=== PATIENT | male | born 1945 | race African-American/Black ===

== ENCOUNTER 2021-05-09 11:11 | Inpatient (IN) | payer MEDICARE, MEDICAID ==
[~2021-05-09] VITALS: Ht 182.9 cm; Wt 84.8 kg
[2021-05-09 12:31] LABS: EOSINOPHILS % 1.6 % (0.0-5.0); HEMATOCRIT. 39.9 % (42.0-52.0); HEMOGLOBIN. 13.3 g/dL (14.0-18.0); LYMPHOCYTES % 16.7 % (20.0-50.0); MEAN CORPUSCULAR HEMOGLOBIN 28.3 pg (28.0-32.0); MEAN CORPUSCULAR VOLUME 85.1 fL (80.0-94.0); NEUTROPHILS % 70.7 % (40.0-76.0); RED BLOOD CELL COUNT 4.69 mill/uL (4.7-6.1)
[2021-05-09 12:33] LABS: CHLORIDE 111 mEq/L (98-107)
[2021-05-09 12:49] LABS: MEAN PLATELET VOLUME 8.5 fl (7.4-10.4); PLATELET 183 x1000/uL (130-400)
[2021-05-09] MEDS ORDERED: IOHEXOL-350 100 ML BOTTLE ONE (13:21)
[2021-05-09] MEDS ORDERED: IPRATROPIUM/ALBUTEROL 0.5-3(2.5)MG/3ML NEB HHN PRN (14:30)
[2021-05-09] MEDS ORDERED: DIPHENHYDRAMINE 50MG/ML VIAL IV PRN (14:30)
[2021-05-09] MEDS ORDERED: ONDANSETRON HCL 4MG/2ML INJ IV PRN (14:30)
[2021-05-09] MEDS ORDERED: ACETAMINOPHEN 325MG TABLET PO PRN (14:30)
[2021-05-09] MEDS: ASPIRIN 81MG TABLET PO SCH (21:56)
[2021-05-09] MEDS: CLONIDINE 0.1MG TABLET PO PRN (22:51)
[2021-05-09 23:30] VITALS: BP 158/56
[2021-05-10] MEDS ORDERED: ATOR40TA70 PO (00:40)
[2021-05-10] MEDS ORDERED: SULF1TAB47 MT (00:40)
[2021-05-10] MEDS ORDERED: CARV25TA47 MT (00:40)
[2021-05-10] MEDS ORDERED: LISI-186 PO (00:40)
[2021-05-10] MEDS ORDERED: FERR236T3 MT (00:40)
[2021-05-10] MEDS ORDERED: ASPI-867 MT (00:40)
[2021-05-10 04:00] VITALS: BP 153/57
[2021-05-10] MEDS: CLONIDINE 0.1MG TABLET PO PRN ×2 (05:35→20:22)
[2021-05-10] MEDS ORDERED: ASPI-1497 PO (07:17)
[2021-05-10 07:18] LABS: BASOPHILS % 0.7 % (0.0-2.0); EOSINOPHILS % 1.5 % (0.0-5.0); HEMATOCRIT. 37.6 % (42.0-52.0); HEMOGLOBIN. 12.8 g/dL (14.0-18.0); LYMPHOCYTES % 19.5 % (20.0-50.0); MEAN CORPUSCULAR HEMOGLOBIN 28.7 pg (28.0-32.0); MEAN CORPUSCULAR VOLUME 84.4 fL (80.0-94.0); MEAN PLATELET VOLUME 8.1 fl (7.4-10.4); MONOCYTES % 10.2 % (2.0-8.0); NEUTROPHILS % 68.1 % (40.0-76.0); PLATELET 149 x1000/uL (130-400); RED BLOOD CELL COUNT 4.45 mill/uL (4.7-6.1)
[2021-05-10 08:00] VITALS: BP 160/89
[2021-05-10 08:04] LABS: CHLORIDE 111 mEq/L (98-107)
[2021-05-10 08:12] LABS: CLARITY URINE CLEAR (CLEAR); COLOR URINE YELLOW (YELLOW); KETONES URINE NEGATIVE (NEGATIVE); LEUKOCYTE ESTERASE URINE NEGATIVE (NEGATIVE); NITRITE URINE NEGATIVE (NEGATIVE); OCCULT BLOOD URINE NEGATIVE (NEGATIVE); PROTEIN URINE NEGATIVE (NEGATIVE); SPECIFIC GRAVITY URINE 1.048 (1.005-1.030)
[2021-05-10 08:15] LABS: LDL CHOLESTEROL 118 mg/dL (5-100)
[2021-05-10 08:18] LABS: HDL CHOLESTEROL 59 mg/dL (40-59)
[2021-05-10] MEDS: ASPIRIN 81MG TABLET PO SCH (08:28)
[2021-05-10 08:33] LABS: *AMPHETAMINES SCREEN URINE NEGATIVE (NEGATIVE); *BARBITURATES SCREEN URINE NEGATIVE (NEGATIVE); *COCAINE SCREEN URINE NEGATIVE (NEGATIVE); CANNABINOID URINE SCREEN NEGATIVE (NEGATIVE); OPIATES URINE SCREEN NEGATIVE (NEGATIVE)
[2021-05-10 08:34] LABS: *BENZODIAZEPINES SCREEN URINE NEGATIVE (NEGATIVE); METHADONE URINE SCREEN NEGATIVE (NEGATIVE)
[2021-05-10 08:36] LABS: PHENCYCLIDINE URINE SCREEN NEGATIVE (NEGATIVE)
[2021-05-10 11:50] VITALS: BP 137/80
[2021-05-10] MEDS ORDERED: INFLUENZA VACCINE 05/PF 0.5 ML SYRINGE IM ONE (12:00)
[2021-05-10] MEDS ORDERED: PNEUMOCOCCAL 23-VAL P-SAC VAC 0.5 ML IM ONE (12:00)
[2021-05-10 16:00] VITALS: BP 160/94
[2021-05-10 20:00] VITALS: BP 193/105
[2021-05-10] MEDS: ATORVASTATIN CALCIUM 40MG TABLET PO SCH (21:24)
[2021-05-10] MEDS: HYDRALAZINE 20MG/ML VIAL IV PRN (21:37)
[2021-05-11] VITALS: BP 178/89
[2021-05-11] MEDS: HYDRALAZINE 20MG/ML VIAL IV PRN (01:55)
[2021-05-11 04:00] VITALS: BP 122/89
[2021-05-11 06:38] LABS: BASOPHILS % 0.9 % (0.0-2.0); EOSINOPHILS % 2.3 % (0.0-5.0); HEMATOCRIT. 39.3 % (42.0-52.0); HEMOGLOBIN. 13.5 g/dL (14.0-18.0); LYMPHOCYTES % 21.3 % (20.0-50.0); MEAN CORPUSCULAR HEMOGLOBIN 28.8 pg (28.0-32.0); MEAN CORPUSCULAR VOLUME 83.5 fL (80.0-94.0); MEAN PLATELET VOLUME 8.9 fl (7.4-10.4); MONOCYTES % 10.1 % (2.0-8.0); NEUTROPHILS % 65.4 % (40.0-76.0); PLATELET 164 x1000/uL (130-400); RED BLOOD CELL COUNT 4.71 mill/uL (4.7-6.1); RED CELL DISTRIBUTION WIDTH 13.8 % (11.6-14.6)
[2021-05-11 07:10] LABS: CHLORIDE 108 mEq/L (98-107)
[2021-05-11 08:00] VITALS: BP 153/80
[2021-05-11] MEDS ORDERED: GADOTERATE MEGLUMINE 5 MMOL/10 ML VIAL IV ONE (09:48)
[2021-05-11] MEDS: ASPIRIN 81MG TABLET PO SCH (10:22)
[2021-05-11] MEDS: CLOPIDOGREL 75MG TABLET PO SCH (11:23)
[2021-05-11 12:00] VITALS: BP 175/104
[2021-05-11] MEDS: CLONIDINE 0.1MG TABLET PO PRN (13:57)
[2021-05-11 16:00] VITALS: BP 133/79
[2021-05-11] MEDS: AMLODIPINE 5MG TABLET PO SCH (17:31)
[2021-05-11 20:00] VITALS: BP 115/71
[2021-05-11] MEDS: ATORVASTATIN CALCIUM 40MG TABLET PO SCH (21:44)
[2021-05-12] VITALS (7 sets, daily range): BP systolic 116–170; BP diastolic 71–87
[2021-05-12] MEDS: HYDRALAZINE 20MG/ML VIAL IV PRN ×2 (01:14→12:03)
[2021-05-12] MEDS: CLOPIDOGREL 75MG TABLET PO SCH (09:12)
[2021-05-12] MEDS: ASPIRIN 81MG TABLET PO SCH (09:12)
[2021-05-12] MEDS: AMLODIPINE 5MG TABLET PO SCH ×2 (09:12→17:38)
[2021-05-12] MEDS: ATORVASTATIN CALCIUM 40MG TABLET PO SCH (20:31)
[2021-05-13] VITALS: BP 129/80
[2021-05-13 04:00] VITALS: BP 148/88
[2021-05-13 08:03] VITALS: BP 156/97
[2021-05-13] MEDS: CLOPIDOGREL 75MG TABLET PO SCH (08:49)
[2021-05-13] MEDS: ASPIRIN 81MG TABLET PO SCH (08:49)
[2021-05-13] MEDS: AMLODIPINE 5MG TABLET PO SCH ×2 (08:49→17:15)
[2021-05-13] MEDS ORDERED: AMLO5TAB88 PO (10:58)
[2021-05-13] MEDS ORDERED: CLOP75TA15 PO (10:58)
[2021-05-13 12:15] VITALS: BP 116/71
[2021-05-13 16:07] VITALS: BP 131/75
[2021-05-13 20:00] VITALS: BP 104/67
[2021-05-13] MEDS: ATORVASTATIN CALCIUM 40MG TABLET PO SCH (20:58)
[2021-05-14] VITALS (7 sets, daily range): BP systolic 129–161; BP diastolic 58–90
[2021-05-14 07:29] LABS: VITAMIN B12 SERUM 383 pg/mL (211-911)
[2021-05-14] MEDS: ASPIRIN 81MG TABLET PO SCH (09:15)
[2021-05-14] MEDS: CLOPIDOGREL 75MG TABLET PO SCH (09:15)
[2021-05-14] MEDS: AMLODIPINE 5MG TABLET PO SCH ×2 (09:22→17:26)
[2021-05-14] MEDS: CLONIDINE 0.1MG TABLET PO PRN (17:27)
[2021-05-14] MEDS: ATORVASTATIN CALCIUM 40MG TABLET PO SCH (21:15)
[2021-05-15] VITALS: BP 136/83
[2021-05-15 04:00] VITALS: BP 141/81
[2021-05-15 06:47] VITALS: BP 141/81
[2021-05-15] MEDS ORDERED: CYANOCOBALAMIN 100MCG TABLET PO SCH (07:50)
[2021-05-15 08:00] VITALS: BP 125/83
[2021-05-15] MEDS: ASPIRIN 81MG TABLET PO SCH (09:24)
[2021-05-15] MEDS: AMLODIPINE 5MG TABLET PO SCH (09:24)
[2021-05-15] MEDS: CLOPIDOGREL 75MG TABLET PO SCH (09:24)
== END 2021-05-15 10:51 | disposition home health service (06) | DRG 66 ==
LOC: ER 11:11 → EDBEDREQ 11:39 → MICUSO 13:57 → EDBEDREQ 14:05 → 6WST 22:19
PROVIDERS: ADMIT Internal Medicine; ATTEND Internal Medicine
DX: I63.81 Other cerebral infarction due to occlusion or stenosis of small artery (principal); G93.89 Other specified disorders of brain; C61 Malignant neoplasm of prostate; E11.9 Type 2 diabetes mellitus without complications; I11.0 Hypertensive heart disease with heart failure; I50.9 Heart failure, unspecified; E78.5 Hyperlipidemia, unspecified; R47.81 Slurred speech; Z85.46 Personal history of malignant neoplasm of prostate; Z86.73 Personal history of transient ischemic attack (TIA), and cerebral infarction without residual deficits; Z92.21 Personal history of antineoplastic chemotherapy; Z79.899 Other long term (current) drug therapy; Z79.82 Long term (current) use of aspirin
CPT/HCPCS: 36415; 70496; 70498; 70553; 71045; 80048; 80053; 80061; 80305; 81003; 82607; 83036; 84443; 84484; 85025; 93005; 93306; 93970; 97162; 99285; A9577; J0360; Q9967

== ENCOUNTER 2022-04-29 17:09 | Inpatient (IN) | payer MEDICARE, MEDICAID ==
[~2022-04-29] VITALS: Ht 172.7 cm; Wt 90.7 kg
[~2022-04-29 17:09] MED LIST: AMLO5TAB88 PO; ASPI-1497 PO; ATOR40TA70 PO; CLOP75TA15 PO; FERR236T3 MT; LISI-186 PO
[2022-04-29 19:00] LABS: CHLORIDE 105 mEq/L (98-107)
[2022-04-29 19:08] LABS: PARTIAL THROMBOPLASTIN TIME 31.6 sec (23.4-31.0); PROTHROMBIN TIME 11.2 sec (9.6-11.0)
[2022-04-29 19:15] LABS: HEMATOCRIT. 37.4 % (42.0-52.0); HEMOGLOBIN. 12.7 g/dL (14.0-18.0); MEAN CORPUSCULAR HEMOGLOBIN 28.8 pg (28.0-32.0); MEAN CORPUSCULAR VOLUME 84.6 fL (80.0-94.0); MEAN PLATELET VOLUME 8.5 fl (7.4-10.4); PLATELET 136 x1000/uL (130-400); RED BLOOD CELL COUNT 4.42 mill/uL (4.7-6.1); RED CELL DISTRIBUTION WIDTH 13.4 % (11.6-14.6)
[2022-04-29 19:21] LABS: CREATINE KINASE 3411 IU/L (39-308)
[2022-04-29] MEDS ORDERED: SODIUM CHLORIDE 0.9% 1,000 ML IV ONE ×3 (20:00)
[2022-04-29] MEDS ORDERED: ASPIRIN 81MG TABLET PO ONE (21:30)
[2022-04-29] MEDS ORDERED: ONDANSETRON HCL 4MG/2ML INJ IV PRN (23:15)
[2022-04-29] MEDS ORDERED: DOCUSATE SODIUM 100MG CAPSULE PO PRN (23:15)
[2022-04-29] MEDS ORDERED: ACETAMINOPHEN 325MG TABLET PO PRN (23:15)
[2022-04-29] MEDS ORDERED: GUAIFENESIN 200MG/10ML SUGAR FREE UDC PO PRN (23:15)
[2022-04-29] MEDS ORDERED: HYDROCODONE/ACETAMINOPHEN 5/325MG TABLET PO PRN (23:15)
[2022-04-29] MEDS ORDERED: IPRATROPIUM/ALBUTEROL 0.5-3(2.5)MG/3ML NEB NEB PRN (23:15)
[2022-04-29] MEDS ORDERED: MAGNESIUM/ALUMINUM HYDROXIDE/SIMETHICONE 30ML UDC PO PRN (23:15)
[2022-04-30] VITALS (10 sets, daily range): BP systolic 142–167; BP diastolic 74–90
[2022-04-30] MEDS: SODIUM CHLORIDE 0.9% 1,000 ML IV SCH ×2 (00:14→12:16)
[2022-04-30] MEDS: ENOXAPARIN 40MG/0.4ML SYR SUBCUT SCH ×2 (00:15→08:56)
[2022-04-30 00:58] LABS: PLATELET ESTIMATE NORMAL
[2022-04-30] MEDS ORDERED: BICA50TA7 PO (01:24)
[2022-04-30 08:07] LABS: CREATINE KINASE MB FRACTION 3.3 ng/mL (0.5-3.6)
[2022-04-30] MEDS: ASPIRIN 81MG EC TABLET PO SCH (08:55)
[2022-04-30] MEDS: CLONIDINE 0.1MG TABLET PO PRN (08:55)
[2022-04-30 09:00] LABS: CHLORIDE 108 mEq/L (98-107)
[2022-04-30 09:17] LABS: HDL CHOLESTEROL 45 mg/dL (40-59); LDL CHOLESTEROL 93 mg/dL (5-100)
[2022-04-30] MEDS ORDERED: INFLUENZA VACCINE 05/PF 0.5 ML SYRINGE IM ONE (12:00)
[2022-04-30] MEDS ORDERED: PNEUMOCOCCAL 23-VAL P-SAC VAC 0.5 ML IM ONE (12:00)
[2022-04-30] MEDS ORDERED: NALOXONE HCL 0.4MG/ML VIAL IV PRN (16:45)
[2022-04-30 22:38] LABS: CREATINE KINASE MB FRACTION 1.7 ng/mL (0.5-3.6)
[2022-04-30 22:43] LABS: CLARITY URINE CLEAR (CLEAR); COLOR URINE YELLOW (YELLOW); KETONES URINE NEGATIVE (NEGATIVE); LEUKOCYTE ESTERASE URINE NEGATIVE (NEGATIVE); NITRITE URINE NEGATIVE (NEGATIVE); OCCULT BLOOD URINE NEGATIVE (NEGATIVE); PH URINE 6.5 (4.5-8.0); PROTEIN URINE NEGATIVE (NEGATIVE); SPECIFIC GRAVITY URINE 1.017 (1.005-1.030); UROBILINOGEN URINE 0.2 E.U./dL (0.2-1.0)
[2022-05-01] VITALS: BP 171/85
[2022-05-01] MEDS: SODIUM CHLORIDE 0.9% 1,000 ML IV SCH ×2 (00:30→12:21)
[2022-05-01 04:00] VITALS: BP 165/80
[2022-05-01 08:00] VITALS: BP 163/87
[2022-05-01] MEDS: ENOXAPARIN 40MG/0.4ML SYR SUBCUT SCH (08:51)
[2022-05-01] MEDS: ASPIRIN 81MG EC TABLET PO SCH (08:51)
[2022-05-01 12:00] VITALS: BP 136/79
[2022-05-01] MEDS ORDERED: POTASSIUM CHLORIDE 20MEQ TABLET SR PO SCH (12:00)
[2022-05-01 16:00] VITALS: BP 144/85
[2022-05-02] VITALS: BP 152/76
[2022-05-02] MEDS: SODIUM CHLORIDE 0.9% 1,000 ML IV SCH ×2 (00:52→13:45)
[2022-05-02 04:00] VITALS: BP 152/88
[2022-05-02 08:00] VITALS: BP 114/69
[2022-05-02 09:27] LABS: VITAMIN B12 SERUM 361 pg/mL (211-911)
[2022-05-02] MEDS: ASPIRIN 81MG EC TABLET PO SCH (09:35)
[2022-05-02] MEDS: ENOXAPARIN 40MG/0.4ML SYR SUBCUT SCH (09:35)
[2022-05-02 16:00] VITALS: BP 170/63
[2022-05-02 19:53] LABS: CREATINE KINASE 997 IU/L (39-308)
[2022-05-02 20:00] VITALS: BP 159/90
[2022-05-03] VITALS: BP 155/88
[2022-05-03] MEDS: SODIUM CHLORIDE 0.9% 1,000 ML IV SCH ×2 (02:29→14:29)
[2022-05-03 04:00] VITALS: BP 169/90
[2022-05-03] MEDS: CLONIDINE 0.1MG TABLET PO PRN (05:15)
[2022-05-03 06:42] LABS: BASOPHILS % 0.6 % (0.0-2.0); EOSINOPHILS % 1.1 % (0.0-5.0); HEMATOCRIT. 36.5 % (42.0-52.0); HEMOGLOBIN. 12.7 g/dL (14.0-18.0); LYMPHOCYTES % 21.8 % (20.0-50.0); MEAN CORPUSCULAR HEMOGLOBIN 28.7 pg (28.0-32.0); MEAN CORPUSCULAR VOLUME 82.9 fL (80.0-94.0); MONOCYTES % 12.7 % (2.0-8.0); NEUTROPHILS % 63.8 % (40.0-76.0); PLATELET 127 x1000/uL (130-400); RED CELL DISTRIBUTION WIDTH 13.4 % (11.6-14.6)
[2022-05-03 08:00] VITALS: BP 127/82
[2022-05-03 08:09] LABS: CHLORIDE 108 mEq/L (98-107)
[2022-05-03] MEDS: ASPIRIN 81MG EC TABLET PO SCH (08:48)
[2022-05-03] MEDS: ENOXAPARIN 40MG/0.4ML SYR SUBCUT SCH (08:48)
[2022-05-03 12:00] VITALS: BP 144/79
[2022-05-03 16:00] VITALS: BP 141/72
[2022-05-03 20:00] VITALS: BP 159/89
[2022-05-04] VITALS: BP 175/94
[2022-05-04 04:00] VITALS: BP 158/95
[2022-05-04] MEDS: SODIUM CHLORIDE 0.9% 1,000 ML IV SCH ×2 (04:15→14:50)
[2022-05-04 08:00] VITALS: BP 168/101
[2022-05-04] MEDS: ASPIRIN 81MG EC TABLET PO SCH (09:01)
[2022-05-04] MEDS: ENOXAPARIN 40MG/0.4ML SYR SUBCUT SCH (09:02)
[2022-05-04] MEDS: CLONIDINE 0.1MG TABLET PO PRN (10:57)
[2022-05-04 12:20] VITALS: BP 159/93
[2022-05-04] MEDS ORDERED: CLOPIDOGREL 75MG TABLET PO SCH (12:45)
[2022-05-04] MEDS: AMLODIPINE 5MG TABLET PO SCH ×2 (13:41→21:10)
[2022-05-04] MEDS: BICALUTAMIDE 50 MG TABLET PO SCH (14:50)
[2022-05-04 16:48] VITALS: BP 151/87
[2022-05-04 20:00] VITALS: BP 144/77
[2022-05-05] VITALS: BP 165/87
[2022-05-05] MEDS: SODIUM CHLORIDE 0.9% 1,000 ML IV SCH (03:39)
[2022-05-05 04:00] VITALS: BP 161/89
[2022-05-05] MEDS: CLONIDINE 0.1MG TABLET PO PRN (04:25)
[2022-05-05 07:14] LABS: BASOPHILS % 0.5 % (0.0-2.0); EOSINOPHILS % 2.3 % (0.0-5.0); HEMATOCRIT. 37.3 % (42.0-52.0); HEMOGLOBIN. 12.8 g/dL (14.0-18.0); LYMPHOCYTES % 23.6 % (20.0-50.0); MEAN CORPUSCULAR HEMOGLOBIN 28.7 pg (28.0-32.0); MEAN CORPUSCULAR VOLUME 83.8 fL (80.0-94.0); MEAN PLATELET VOLUME 8.4 fl (7.4-10.4); NEUTROPHILS % 63.6 % (40.0-76.0); PLATELET 158 x1000/uL (130-400); RED BLOOD CELL COUNT 4.45 mill/uL (4.7-6.1); RED CELL DISTRIBUTION WIDTH 13.4 % (11.6-14.6)
[2022-05-05 07:39] LABS: CHLORIDE 111 mEq/L (98-107)
[2022-05-05 08:00] VITALS: BP 163/88
[2022-05-05] MEDS: AMLODIPINE 5MG TABLET PO SCH (08:40)
[2022-05-05] MEDS: ENOXAPARIN 40MG/0.4ML SYR SUBCUT SCH (08:40)
[2022-05-05] MEDS: ASPIRIN 81MG EC TABLET PO SCH (08:40)
[2022-05-05] MEDS: BICALUTAMIDE 50 MG TABLET PO SCH (10:35)
[2022-05-05] MEDS: LOSARTAN POTASSIUM 50 MG TABLET PO SCH (11:57)
[2022-05-05 12:00] VITALS: BP 146/82
[2022-05-05 16:00] VITALS: BP 150/85
[2022-05-05 20:00] VITALS: BP 144/72
[2022-05-05] MEDS: AMLODIPINE 10MG TABLET PO SCH (21:36)
[2022-05-05] MEDS: ENOXAPARIN 30MG/0.3ML SYR SUBCUT SCH (21:37)
[2022-05-06] VITALS: BP_SYST 146; BP_DIAS 48; BP_DIAS 74
[2022-05-06 04:00] VITALS: BP 128/68
[2022-05-06 08:00] VITALS: BP 165/89
[2022-05-06] MEDS: ASPIRIN 81MG EC TABLET PO SCH (08:53)
[2022-05-06] MEDS: BICALUTAMIDE 50 MG TABLET PO SCH (08:53)
[2022-05-06] MEDS: AMLODIPINE 10MG TABLET PO SCH (08:54)
[2022-05-06] MEDS: LOSARTAN POTASSIUM 50 MG TABLET PO SCH (08:54)
[2022-05-06] MEDS: ENOXAPARIN 30MG/0.3ML SYR SUBCUT SCH (08:54)
[2022-05-06] MEDS ORDERED: AMLO10TA80 PO (10:39)
[2022-05-06 12:00] VITALS: BP 124/73
[2022-05-06 15:43] VITALS: BP 125/73
[2022-05-06 16:00] VITALS: BP 139/62
== END 2022-05-06 18:30 | disposition home health service (06) | DRG 682 ==
LOC: ER 17:09 → ENRESERV 23:03 → 8WST 23:36 → 7EST 04-30 09:49
PROVIDERS: ADMIT Internal Medicine; ATTEND Internal Medicine
DX: N17.9 Acute kidney failure, unspecified (principal); U07.1 COVID-19; M62.82 Rhabdomyolysis; G93.40 Encephalopathy, unspecified; E11.9 Type 2 diabetes mellitus without complications; Z60.2 Problems related to living alone; C61 Malignant neoplasm of prostate; I50.9 Heart failure, unspecified; I11.0 Hypertensive heart disease with heart failure; Z79.82 Long term (current) use of aspirin; Z86.73 Personal history of transient ischemic attack (TIA), and cerebral infarction without residual deficits; Z79.899 Other long term (current) drug therapy
CPT/HCPCS: 36415; 70551; 71045; 80048; 80053; 80061; 81003; 82550; 82553; 82607; 82962; 83036; 83880; 84145; 84443; 84484; 85025; 86850; 86900; 87426; 93005; 93880; 97116; 97162; 99285; J1650; J7030

== ENCOUNTER 2022-10-24 15:23 | Emergency (ER) | payer MEDICARE, MEDICAID ==
[~2022-10-24] VITALS: Ht 182.9 cm; Wt 98.0 kg
[~2022-10-24 15:23] MED LIST changes: +AMLO10TA80 PO; -AMLO5TAB88 PO; +BICA50TA7 PO; -LISI-186 PO
[2022-10-24 16:38] LABS: BASOPHILS % 0.8 % (0.0-2.0); EOSINOPHILS % 1.6 % (0.0-5.0); HEMATOCRIT. 36.9 % (42.0-52.0); HEMOGLOBIN. 12.4 g/dL (14.0-18.0); LYMPHOCYTES % 17.6 % (20.0-50.0); MEAN CORPUSCULAR HEMOGLOBIN 28.7 pg (28.0-32.0); MEAN CORPUSCULAR VOLUME 85.5 fL (80.0-94.0); MONOCYTES % 10.2 % (2.0-8.0); NEUTROPHILS % 69.8 % (40.0-76.0); PLATELET 185 x1000/uL (130-400); RED BLOOD CELL COUNT 4.31 mill/uL (4.7-6.1); RED CELL DISTRIBUTION WIDTH 13.8 % (11.6-14.6)
[2022-10-24 16:40] LABS: CHLORIDE 108 mEq/L (98-107)
[2022-10-24 17:42] LABS: CLARITY URINE CLEAR (CLEAR); COLOR URINE YELLOW (YELLOW); KETONES URINE NEGATIVE (NEGATIVE); LEUKOCYTE ESTERASE URINE NEGATIVE (NEGATIVE); NITRITE URINE NEGATIVE (NEGATIVE); OCCULT BLOOD URINE 3+ (NEGATIVE); PH URINE 5.5 (4.5-8.0); PROTEIN URINE 1+ (NEGATIVE); SPECIFIC GRAVITY URINE 1.025 (1.005-1.030)
[2022-10-24 18:28] VITALS: BP 149/80
== END 2022-10-24 18:31 | disposition home or self-care (01) ==
LOC: ER 15:23
DX: T83.511A Infection and inflammatory reaction due to indwelling urethral catheter, initial encounter (principal); X58.XXXA Exposure to other specified factors, initial encounter; I11.0 Hypertensive heart disease with heart failure; I50.9 Heart failure, unspecified; E11.9 Type 2 diabetes mellitus without complications; Z86.73 Personal history of transient ischemic attack (TIA), and cerebral infarction without residual deficits
CPT/HCPCS: 36415; 80053; 81003; 85025; 99283